=== PATIENT | male | born 1955 | race Caucasian/White ===

== ENCOUNTER 2016-02-12 08:08 | Inpatient (IN) | payer MEDICARE ==
[~2016-02-12] VITALS: Ht 172.7 cm; Wt 99.5 kg
[~2016-02-12 08:08] MED LIST: ARMO1TAB4 PO; BENZ2TAB PO; BETH25TA2 PO; BROV15NE NEB; BUDE0.5S NEB; BUPR300T PO; ERGO1CAP10 PO; ESLI1TAB PO; HYDR50TA94 PO; LEVO-86 PO; MIRT30TA PO; OLAN15TA PO; PERP16TA6 PO; PROT40TA PO; SPIRCAP INH; VENL150T PO
[2016-02-13] MEDS ORDERED: LACTATED RINGER'S 1000 ML IV SCH (06:30)
[2016-02-13] MEDS ORDERED: VANCOMYCIN HCL 1000 MG ON-CALL/NS 250 ML IV SCH ×2 (06:30)
[2016-02-13] MEDS ORDERED: METOPROLOL TARTRATE 25 MG TAB PO PRN (06:30)
[2016-02-13] MEDS ORDERED: INSULIN HUMAN REGULAR 1,000 UNITS/10 ML VIAL SQ PRN (06:30)
[2016-02-13] MEDS ORDERED: SODIUM CHLORID 0.9% 500 ML IV SCH (06:30)
[2016-02-13] MEDS ORDERED: BUPIVACAINE/EPINEPHRINE 0.25% PF 30 ML VIAL ONE (07:07)
[2016-02-13 07:10] VITALS: BP 154/90; PULSE 75; RESP 20; TEMP 98; O2SAT 95
[2016-02-13 07:10] LABS: AUTOMATED NEUTROPHIL # 4.2 TH/MM3 (1.8-7.7); BASOPHIL # 0.1 TH/MM3 (0-0.2); BASOPHIL % 0.9 % (0.0-2.0); EOSINOPHIL # 0.2 TH/MM3 (0-0.4); EOSINOPHIL % 2.8 % (0.0-4.0); HEMO FLAGS DIFF FINAL; LYMPH % 21.8 % (9.0-44.0); LYMPHOCYTE # 1.4 TH/MM3 (1.0-4.8); MEAN CELL VOLUME 81.2 FL (80.0-100.0); MEAN CORPUSCULAR HGB CONC 33.3 % (32.0-36.0); MONO % 9.1 % (0.0-8.0); NEUT % 65.4 % (16.0-70.0); PLATELET COUNT 188 TH/MM3 (150-450); RED BLOOD COUNT 4.93 MIL/MM3 (4.50-5.90); RED CELL DISTRIBUTION WIDTH 13.9 % (11.6-17.2); WHITE BLOOD COUNT 6.4 TH/MM3 (4.0-11.0)
--- NOTE | 2016-02-13 07:28 | EKG ---
Date Performed: 02/13/2016 Time Performed: 06:57:24 PTAGE: 60 years EKG: Sinus rhythm WITH SINUS ARRHYTHMIA AND POSSIBLE PACs. BORDERLINE ECG NO PREVIOUS TRACING DOCTOR: Michael Paz Interpretating Date/Time 02/13/2016 07:27:58
[2016-02-13] MEDS ORDERED: ACETAMINOPHEN 1000 MG/100 ML VIAL IV ONE (07:37)
[2016-02-13] MEDS ORDERED: RESP: ALBUTEROL 2.5 MG/IPRATROPIUM 0.5 MG NEB (SCH) ONE (08:04)
[2016-02-13] MEDS ORDERED: FAMOTIDINE 20 MG/2 ML VIAL ONE (08:05)
[2016-02-13] MEDS ORDERED: DEXAMETHASONE SOD PHOS 4 MG/ML VIAL ONE (08:05)
[2016-02-13] MEDS ORDERED: MIDAZOLAM HCL 2 MG/2 ML VIAL ONE (08:06)
[2016-02-13] MEDS ORDERED: fentaNYL CITRATE 250 MCG/5 ML AMP ONE ×2 (11:15)
[2016-02-13] MEDS ORDERED: SODIUM CHLOR 0.9% 1000 ML INJ 1,000 ML IV SCH (11:22)
--- NOTE | 2016-02-13 11:22 | PD.OP ---
Operative Report Date of Surgery: Feb 13, 2016 Preoperative Diagnosis: Hiatal hernia, GERD Postoperative Diagnosis: same, large amount of intraperitoneal fat. Procedure: Lap repair Hiatal hernial with Reid fundoplication and Carlotta BIO A mesh. Anesthesia: general Surgeon: Blaine South Oracle Erp Developer(s): Dr Ammon Zuniga Operation and Findings: large amount of intraperitoneal fat requiring additional port placement to allow for additional instrumentation to retract fat out of the way to facilitate adequate visualization of the important anatomic structures. EBL less than 25 ml. 360 degree fundoplication over 50 andorran bougie, loose wrap. Blaine South MD Feb 13, 2016 11:22
[2016-02-13] MEDS ORDERED: ONDANSETRON HCL 4 MG/2 ML VIAL IV PRN (11:30)
[2016-02-13] MEDS ORDERED: MAGNESIUM HYDROXIDE SUSP 30 ML CUP PO PRN (11:30)
[2016-02-13] MEDS ORDERED: ACETAMINOPHEN/HYDROcodone 325 MG/5 MG TAB PO PRN ×2 (11:30)
[2016-02-13] MEDS ORDERED: hydrOXYzine HCL 50 MG TAB PO PRN (11:30)
[2016-02-13] MEDS ORDERED: SODIUM CHLORIDE 0.9% FLUSH 5 ML FLUSH IVF PRN (11:30)
[2016-02-13] MEDS ORDERED: TEMAZEPAM 15 MG CAP PO PRN (11:30)
[2016-02-13] MEDS ORDERED: Post-op Orders (for Pharmacy) MISC XX ONE (11:30)
[2016-02-13] MEDS ORDERED: BENZTROPINE MESYLATE 2 MG TAB PO PRN (11:30)
[2016-02-13] MEDS ORDERED: HYDROmorphone HCL PF 1 MG/ML VIAL IV PRN (11:30)
[2016-02-13] MEDS ORDERED: diphenhydrAMINE HCL 25 MG CAP PO PRN (11:30)
--- NOTE | 2016-02-13 11:54 | MP ---
cc: FAHEEM CARTWRIGHT M.D. DATE OF SURGERY 02/13/2016 PREOPERATIVE DIAGNOSES Hiatal hernia. Severe gastroesophageal reflux disease. POSTOPERATIVE DIAGNOSES Hiatal hernia. Severe gastroesophageal reflux disease. Large amount of intraperitoneal fat. PROCEDURES Laparoscopic repair of hiatal hernia with Reid fundoplication and [place] Bio-A mesh. ANESTHESIA General endotracheal. SURGEON Dr. Faheem Cartwright MANAGEMENT ASSOCIATE Dr. Ammon Zuniga INDICATIONS FOR PROCEDURE This is a very pleasant 60-year-old gentleman with a long history of tobacco abuse disorder and COPD type changes who was sent to me in consultation by Dr. Melvin Hoskins regarding hiatal hernia, esophagitis and Kaufman's disease. He has had many years of reflux disease and hiatal hernia with increasing symptoms of fullness in the upper abdomen and lower chest after eating and some associated shortness of breath. He has had an EGD which showed an 8-cm hiatal hernia and reflux changes. He has been evaluated preoperatively by his spray applicator, Dr. Braga. INTRAOPERATIVE FINDINGS A huge amount of intraabdominal fat making identification of normal anatomic structures difficult. This required additional port placement for instrumentation to retract fat out of the way to facilitate adequate visualization of the important anatomy. Estimated blood loss less than 25 mL. A 360-degree fundoplication over a 50-Citizen Of [place] bougie resulting in a loose wrap was performed. His diaphragmatic crura were approximated primarily with suture and reinforced with [place] Bio-A mesh. DESCRIPTION OF PROCEDURE IN DETAIL The patient was identified as Gato Felton, taken to the operating room, placed in supine position. Sequential compression devices were placed on bilateral lower extremities. Following induction of adequate general endotracheal anesthesia, the patient's abdomen was prepped and draped in the usual sterile fashion with Betadine. A time-out procedure was performed. Following completion of the time-out procedure to everyone's satisfaction within the room, 0.25% Marcaine with epinephrine was placed at each incision site. An incision about 6 cm above the umbilicus, about 3 cm in length vertical oriented was carried out with the scalpel and dissection continued posteriorly through the subcutaneous fatty tissue layer until the fascia in the midline was identified. This was incised with scalpel allowing for entry into the peritoneal cavity with the surgeon's finger. [employer] Balloon Terry trocar was placed in the peritoneal cavity, its balloon inflated with CO2 insufflation until a level of 15 mmHg ensued. The patient was placed in a steep reverse Trendelenburg position and four upper abdominal, 5-mm trocars were placed under direct laparoscopic view after incision of the skin with a scalpel. The long Fidelia-Flex liver retractor was placed beneath the left lateral lobe of the liver which was enlarged and fatty infiltrated. This was held in position with a robot arm. Dissection then proceeded. A hiatal hernia defect was obvious. His stomach was going up into the chest. This was withdrawn and, with inferior retraction and more reverse Trendelenburg, a window in the gastrohepatic ligament was able be identified and opened using the harmonic scalpel. Care was taken to ensure we did not interrupt the left gastric artery. The right side of the diaphragmatic crura was then identified and a division of the peritoneum from the hernia sac anteriorly was performed using the harmonic scalpel. Retraction on the hernia sac then sequentially allowed for the hernia sac to be reduced. At one point we went over to the greater curvature of the stomach to take down the short gastrics to facilitate mobilization of the stomach and to remove some fatty tissue from our visual field. In order to facilitate this, a fifth 5-mm trocar was placed in the subcostal position on the left side under direct laparoscopic view after incision of the skin with a scalpel. The short gastrics were sequentially taken down until the left-sided diaphragmatic crura was identified and the peritoneal attachments were relieved from the hernia sac. The hernia sac was then amputated and placed beneath the left lateral lobe of the liver to store it in a position where it could be retrieved at a later time and ultimately it was removed using an Endo-retriever bag. The gastroesophageal junction was then identified and using suction dissection posteriorly a window was developed at the GE junction and the cruz's hook retractor was placed through that to facilitate inferior retraction at the GE junction. Further mobilization of the hernia sac occurred posteriorly and all this tissue was relieved from the mediastinum into the peritoneal cavity. The fundus was then able to be brought through the posterior window which had been enlarged using a Fidelia-Flex grasper. Once it was brought to the right side of the GE junction, it stayed there without any tension on it. Sequential dilatation with esophageal bougies was then performed by the nurse associate scientist, passing a 36, a 40, a 44 and then a 50-Citizen [place] bougie which was left in position. The two 0 Ethibond sutures were placed in the diaphragmatic crura posteriorly to approximate it and this was performed without any undue tension. The 360-degree fundoplication was then performed using three separate 0 Ethibond sutures using the suture clinical assistant professor device. Superiorly sutures were placed from full-thickness stomach to anterior partial-thickness esophagus to full-thickness stomach. The inferior-most suture was just stomach to stomach. The bougie was then removed and the posterior closure was reinforced with the [place] Bio-A mesh. The U-shaped mesh was customized in shape and size and placed around the esophagus at the level of the diaphragm. It was held in position posteriorly with a single suture including the posterior wrap of the stomach at the approximate 8:30 position. The mesh was positioned in a reverse-C orientation, tucking anteriorly the mesh beneath the left lateral lobe of the liver. Further fixation of the mesh was performed using Tisseel fibrin sealant. Once this had been completed, a photograph was taken of the completed repair and the liver retractor was removed. The hiatal hernia sac was then retrieved using an Endo-retriever bag and discarded. The abdomen was allowed to be desufflated and trocars removed under direct visualization. There was no evidence of bleeding from trocar sites. The abdomen was completely desufflated through the supraumbilical midline port which was then removed. The fascia in this location was closed with two interrupted 0 Vicryl [id number] sutures. Skin incisions were approximated with 4-0 Monocryl subcuticular sutures. Dressings were applied, Mastisol and 1/2-inch brown Steri-Strips. The patient tolerated the procedure without apparent complication. Sponge, needle and instrument counts were correct at the end of the case. Again, additional trocar placement and additional time and effort was required due to the extent of intraabdominal fat which resulted in additional efforts to provide adequate visualization of the anatomy. MD RENETTA Lemon/ANALISA /11:14 AM 11:35 AM
[2016-02-13] MEDS ORDERED: *morphine SULFATE 8 MG/ML PERIprocedure ONLY ONE ×2 (11:56→12:14)
[2016-02-13] MEDS ORDERED: LACTATED RINGER'S 1000 ML INJ 1,000 ML IV ONE (12:00)
[2016-02-13] MEDS: ACETAMINOPHEN 1000 MG/100 ML VIAL IV SCH ×2 (12:00→18:00)
[2016-02-13] MEDS ORDERED: ERGOCALCIFEROL (VIT D2) 50,000 UNIT CAP PO SCH (12:00)
[2016-02-13] MEDS ORDERED: NEOSTIGMINE 3 MG/3 ML SYR IV ONE (12:00)
[2016-02-13] MEDS ORDERED: ONDANSETRON HCL 4 MG/2 ML VIAL IV PUSH ONE (12:00)
[2016-02-13] MEDS ORDERED: PROPOFOL 200 MG/20 ML AMP IV ONE (12:00)
[2016-02-13] MEDS ORDERED: DO NOT ADM ANY ANTICOAGULANT DRUGS XX PRN (12:00)
[2016-02-13 13:40] VITALS: BP 138/81; PULSE 77; RESP 17; TEMP 97.8; O2SAT 93
[2016-02-13] MEDS: BETHANECHOL CHL 25 MG TAB PO SCH ×2 (14:41→18:00)
[2016-02-13 16:00] VITALS: BP 155/84; PULSE 76; RESP 16; TEMP 96.7; O2SAT 93
[2016-02-13] MEDS ORDERED: HYDR-3533 PO (18:05)
--- NOTE | 2016-02-13 18:12 | HHI.DS ---
Discharge Summary Admission Date Feb 13, 2016 at 06:08 Discharge Date: Feb 13, 2016 Admitting Diagnosis hiatal hernia, severe gerd Procedures lap hiatal hernia repair with hari fundoplication and gore bio a mesh Brief History 60 year old hiatal hernia and severe gerd. CBC/BMP: 02/13/16 0650 Significant Findings Laboratory Tests Test 02/13/16 06:50 Monocytes (%) (Auto) 9.1 % (0.0-8.0) PE at Discharge all trocar sites healing beneath steristrips. Hospital Course admitted through sds, went to or, had surgery, postop drinking liquids well, getting up in room, voiding urine, wants to go home. Pt Condition on Discharge: Good Discharge Disposition: Discharge Home Discharge Instructions DIET: Follow Instructions for: Full Liquid Diet Additional Diet Instructions: No solid foods, up to mashed potato consistency. Activities you can perform: Shower Only-No Bath Activities to Avoid: Strenuous Activity Blaine South MD Feb 13, 2016 18:12
[2016-02-13] MEDS ORDERED: RESP: BUDESONIDE 0.5 MG/2 ML NEB NEB SCH (20:00)
[2016-02-13] MEDS ORDERED: NON-FORMULARY DRUG (Arformoterol Neb (Brovana Neb) 1 NEBULE) NEB SCH (21:00)
[2016-02-13] MEDS ORDERED: SODIUM CHLORIDE 0.9% FLUSH 5 ML FLUSH IVF SCH (21:00)
[2016-02-13] MEDS ORDERED: MIRTAZAPINE 15 MG TAB PO SCH (21:00)
[2016-02-13] MEDS ORDERED: PERPHENAZINE 4 MG TAB PO SCH (21:00)
[2016-02-14] MEDS ORDERED: LEVOTHYROXINE SODIUM 25 MCG TAB PO SCH (06:00)
[2016-02-14] MEDS ORDERED: LEVOTHYROXINE SODIUM 112 MCG TAB PO SCH (06:00)
[2016-02-14] MEDS ORDERED: VENLAFAXINE HCL XR 75 MG CAP PO SCH (09:00)
[2016-02-14] MEDS ORDERED: PANTOPRAZOLE SOD 40 MG DELAYED RELEASE TAB PO SCH (09:00)
[2016-02-14] MEDS ORDERED: TIOTROPIUM BROMIDE 18 MCG INH INH SCH (09:00)
[2016-02-14] MEDS ORDERED: ESLICARBAZEPINE PO SCH (09:00)
[2016-02-14] MEDS ORDERED: ARMODAFINIL 250 MG PO SCH ×2 (09:00)
[2016-02-14] MEDS ORDERED: buPROPion HCL 150 MG SUSTAINED RELEASE TAB PO SCH (09:00)
[2016-02-14] MEDS ORDERED: APTIOM 200 MG PO SCH (09:00)
[2016-02-14] MEDS ORDERED: ENOXAPARIN SODIUM 40 MG/0.4 ML SYRINGE SQ SCH (10:00)
== END 2016-02-13 18:48 | disposition home or self-care (01) | DRG 328 ==
LOC: HSDI 02-13 06:08 → N07A 02-13 13:38
PROVIDERS: ADMIT Surgery Trauma Surgery; ATTEND Surgery Trauma Surgery
PROC: 0BUR4JZ (ICD-10-PCS; 2016-02-13)
PROC: 0DV44ZZ Restriction of Esophagogastric Junction, Percutaneous Endoscopic Approach (ICD-10-PCS; principal; 2016-02-13 08:13)
DX: K44.9 Diaphragmatic hernia without obstruction or gangrene (principal); K21.9 Gastro-esophageal reflux disease without esophagitis; K22.70 Barrett's esophagus without dysplasia; F17.210 Nicotine dependence, cigarettes, uncomplicated; J44.9 Chronic obstructive pulmonary disease, unspecified
CPT/HCPCS: 85025; 86850; 86900; 86901; 93005; 94150; 94664; C1781; J0131; J1100; J2250; J2270; J2405; J2710; J3010; J3370; J7030; J7050; J7120

== ENCOUNTER → 2016-09-25 | Day surgery (SDC) | payer MEDICARE ==
[~2016-09-25] MED LIST changes: +BUPIVACAINE/EPINEPHRINE 0.25% 50 ML VIAL ONE; +HYDR-3533 PO; +KETOROLAC TROMETHAMINE 30 MG/ML (IVP) VIAL IV PUSH ONE; +MIDAZOLAM HCL 2 MG/2 ML VIAL ONE; +MORPHINE SULFATE 4 MG/ML INJ ONE; +ONDANSETRON HCL 4 MG/2 ML VIAL IV PUSH ONE; +PROPOFOL 200 MG/20 ML AMP IV ONE; +SODIUM CHLOR 0.9% 250 ML INJ 250 ML IV ONE; +VANCOMYCIN HCL 1000 MG VIAL ONE
--- NOTE | 2016-09-25 11:26 | TN ---
cc: FAHEEM CARTWRIGHT M.D. DATE OF SURGERY: 09/25/2016 PREOPERATIVE DIAGNOSIS Ventral incisional hernia. POSTOPERATIVE DIAGNOSIS Ventral incisional hernia. PROCEDURE Open repair ventral incisional hernia with mesh. SURGEON Dr. Faheem Cartwright HEATING FIXTURE TENDER MAURA Boyce ANESTHESIA General. INDICATIONS A very pleasant 60-year-old gentleman who had previously undergone laparoscopic repair of hiatal hernia with a Reid fundoplication in July 2016, who developed a supraumbilical ventral incisional hernia. The lump does create tenderness. He is desirous of operative repair. INTRAOPERATIVE FINDINGS An about 4 cm ventral incisional hernia defect repaired in a modifying component separation technique with retrorectus mesh. ESTIMATED BLOOD LOSS Less than 5 mL. DESCRIPTION OF PROCEDURE IN DETAIL The patient was identified as Gato Felton, taken to the operating room and placed in supine position. Sequential compression devices were placed on bilateral lower extremities. Following induction of adequate general anesthesia the patient's abdomen was prepped and draped in the usual sterile fashion with Betadine. A timeout procedure was performed. Following completion of the timeout procedure to everyone's satisfaction within the room the proposed elliptical incision including the previous supraumbilical small midline incision was made with a marking pen and infiltrated local anesthetic. The incision was carried out with a scalpel and hemostasis controlled with electrocautery. Dissection continued posteriorly until the hernia sac was encountered. It was from surrounding tissues down to the level of the fascia using electrocautery. The hernia sac was incised at its base at its juncture with the fascia and a redundant sac and a small amount of omentum amputated, suture ligated and tied with 2-0 Vicryl tie. The posterior components were then from the overlying rectus muscle using electrocautery. A space about 6 x 6 cm was cleared for placement of retrorectus mesh. A piece of Atrium ProLite mesh was then cut to the appropriate size and sutured in position taut in the retrorectus position using interrupted 2-0 PDS sutures. The retrorectus space was irrigated with saline. There was no evidence of bleeding. The anterior fascia was then approximated in the midline without tension using a running 0-PDS suture. The posterior rectus fascia and peritoneum were initially closed prior to placement of mesh with a running 0-PDS suture. The wound was irrigated copiously with saline. Interrupted 2-0 Vicryl sutures were placed to gently approximate the subcutaneous fatty tissue. More local anesthetic was placed and the skin was approximated with running 4-0 Monocryl subcuticular suture. Dressings were applied with Mastisol, half-inch brown Steri-Strips, gauze and Tegaderm. The patient tolerated the procedure without apparent complication. Sponge, needle and instrument counts were correct at the end of the case. MD RENETTA Lemon/ARELI /11:02 AM /11:12 AM
== END | disposition home or self-care (01) ==
LOC: ESDC 07:47
PROVIDERS: ATTEND Surgery Trauma Surgery
DX: K43.2 Incisional hernia without obstruction or gangrene (principal)
CPT/HCPCS: 00752; 49560; 49568; C1781; J1885; J2250; J2270; J2405; J3010; J3370; J7050